=== PATIENT | female | born 1975 | race Caucasian/White ===

== ENCOUNTER 2023-06-15 15:52 | Outpatient (CLI) | payer OTHER, SELFPAY ==
--- NOTE | ~2023-06-15 | MM_ITS ---
EXAMINATION: MM screening [place] [facility] w [place] HISTORY: Screening mammogram TECHNIQUE: Craniocaudal and mediolateral oblique 3-D tomosynthesis images were obtained and synthetic 2-D images were generated. CAD analysis was submitted and interpreted. COMPARISON: 03/31/2017, 02/11/2016 bilateral screening mammogram examinations BREAST PARENCHYMAL COMPOSITION: The breasts are heterogeneously dense, which may obscure small masses . FINDINGS: There is no evidence of suspicious mass, calcification, or architectural distortion to sugg est malignancy in either breast. There has been no suspicious interval change. IMPRESSION: 1. No mammographic evidence of malignancy. 2. Recommend routine screening mammography in one year. BI-RADS Category 1: Negative Reviewed, dictated and finalized at location A.
== END 2023-06-15 15:53 | disposition home or self-care (01) ==
LOC: ANHIMG 15:57
PROVIDERS: PCP Physician Assistant; Visit Provider Physician Assistant
DX: Z12.31 Encounter for screening mammogram for malignant neoplasm of breast (principal)
CPT/HCPCS: 77063; 77067

== ENCOUNTER 2025-08-03 14:11 | Outpatient (CLI) | payer OTHER, SELFPAY ==
--- NOTE | ~2025-08-03 | MM_ITS ---
EXAMINATION: MM screening [place] [facility] w [facility] HISTORY: Screening TECHNIQUE: Craniocaudal and mediolateral oblique 3-D tomosynthesis images were obtained and synthetic 2-D images were generated. CAD analysis was submitted and interpreted. COMPARISON: Comparison to multiple prior studies sequentially, with oldest reviewed study dated 03/31/2017. BREAST PARENCHYMAL COMPOSITION: Dense: The breasts are extremely dense, which lowers the sensitivity of mammography. FINDINGS: There is no evidence of suspicious mass, calcification, or architectural distortion to suggest malignancy in either breast. There has been no suspicious interval change. IMPRESSION: 1. No mammographic evidence of malignancy. 2. Recommend routine screening mammography in one year. BI-RADS Category 1: Negative Reviewed, dictated and finalized at location [facility]
--- OUTSIDE RECORDS SUMMARY | 2025-08-03 14:37 | XMS_ITS | Encounter Summary ---
Author Organization [facility] Address [facility] [place] [address] Care Team Providers Care Refiner Operator Name Role Phone Kem Fernandez MD Primary Care Provider [phone] Encounter Details Date Type Department Care Team (Late st Contact Info) Description 02/19/[address] [facility] Medical Group Family & Internal Medicine [facility] [address] [place] [phone] [place] [address] [place] [address] Medication Social History Tobacco Use Types Packs/Day Years Used Date Smoking Tobacco: Former Cigarettes 1 15 0 1988 - 2003 Passive Smoke Exposure: Past Smokeless Tobacco: Never Alcohol Use Standard Drinks/Week Comments Yes 1.7 (1 standard drink = 0.6 oz p ure alcohol) occ AUDIT-C Answer Date Recorded Frequency of Alcohol Consumption Never 08/19/2019 Average Number of Drinks Not on file 019 Frequency of Binge Drinking Not on file 07/23 PHQ-2 Answer Date Recorded Patient Health Questionnaire-2 Score 0 11/17/2022 Comments No Sex and Gender Information Value Date Recorded Sex Assigned at Female 12/12/2024 11:31 AM CDT Legal Sex Female 6:42 PM CDT Gender Identity Female 12/12/2024 11:31 AM CDT Sexual Orientation Straight 12/12/2024 11 :31 AM CDT documented as of this encounter Plan of Treatment Upcoming Encounters Date Type Department Care Team (Late st Contact Info) Description 08/31/2025 10:40 AM BACKHOE OPERATOR Office Visit [facility] Medical [facility] Multispecialty Care - [place] [address] [address] [place] [address] Kem Fernandez MD [address] [place] [address] 12/13/2025 9:20 AM CDT Office Visit [facility] Medical [facility] Multispecialty [facility] - [address] [address] Kem Fernandez MD [address] [place] [address] documented as of this encounter Visit Diagnoses Not on filedocumented in this encounter Care Teams Refiner Operator Relationship Specialty Start Date End Date Kem Fernandez MD [address] [place] [phone] PCP - General INTERNAL MEDICINE 12/12/24 documented as of this encounter
--- OUTSIDE RECORDS SUMMARY | 2025-08-03 14:37 | XMS_ITS | Encounter Summary ---
Author Organization [facility] Address [facility] [place] [address] Care Team Providers Care Catering Associate Name Role Phone Kem Fernandez MD Primary Care Provider [phone] Encounter Details Date Type Department Care Team (Late st Contact Info) Description 11/17/2022 [employer] Message Enc [facility] Medical Group Family & Internal Medicine [facility] [id number] [place] [phone] [place] [address] [place] [address] Ear infection? Social History Tobacco Use Types Packs/Day Years [...] Orientation Straight 12/12/2024 11 :31 AM CDT COVID-19 Exposure Response Date Recorded In the last 10 days, have yo u been in contact with someone who was confirmed or suspected to have Coronavirus/COVID-19? No / Unsure 11/17/2022 10:53 AM LADIES ATTENDANT documented as of this encounter Functional Status * Over the past 2 weeks, how often have you been bothered by any of the following problems? Question Answer Date of Assessment Author Status Little interest or pleasure in doing things Not at all 11/17/2022 11:00 AM LADIES ATTENDANT Verna Hinton MA Active Feeling down, depressed, or hopeless Not at all 11/17/2022 11:00 AM Jessica Reyes MA Active Patient Health Questionnaire-2 Score 0 11/17/2022 11:00 AM LADIES ATTENDANT Zoraida Hinton MA Active documented as of this encounter Plan of Treatment Upcoming Encounters Date Type Department Care Team (Late st Contact Info) Description 08/31/2025 10:40 AM LADIES ATTENDANT Office [facility] [address] [address] Kem Fernandez MD [address] [place] [address] 12/13/2025 9:20 AM CDT [facility] [address] [address] Kem Fernandez MD [address] [place] [address] documented as of this encounter Visit Diagnoses Not on filedocumented in this encounter Care Teams Catering Associate Relationship Specialty Start Date End Date Kem Fernandez MD [address] [place] [address] PCP - General INTERNAL MEDICINE 12/12/24 documented as of this encounter
--- OUTSIDE RECORDS SUMMARY | 2025-08-03 14:37 | XMS_ITS | Encounter Summary ---
Author Organization [facility] Address [facility] [place] [address] Care Team Providers Care Air Traffic Instructor Name Role Phone Kem Fernandez MD Primary Care Provider [phone] Encounter Details Date Type Department Care Team (Late Contact Info) Description 07/31/2020 [employer]dai Message Enc [facility] Medical Group Family & Internal Medicine [facility] [address] [place] [address] Payton King APNP [address] [facility] [address] [place], [place] [id number] RE: Follow Up/Update Social History Tobacco Use Types Packs/Day Years Used Date Smoking Tobacco: Former Cigarettes 1 15 Smokeless Tobacco: Never Alcohol Use Standard Drinks/Week Comments Yes 0 (1 standard drink = 0.6 oz pur e alcohol) occ AUDIT-C Answer Date Recorded Frequency of Alcohol Consumption Never 08/19/2019 Average Number of Drinks Not on file 019 Frequency of Binge Drinking Not on file 07/23 PHQ-2 Answer Date Recorded PHQ-2 Score 0 11/24/2019 Comments No Sex and Gender Information Value Date Recorded Sex Assigned at Female 12/12/2024 11:31 AM CDT Legal Sex Female 6:42 PM CDT Gender Identity Female 12/12/2024 11:31 AM CDT Sexual Orientation Straight 12/12/2024 11 :31 AM CDT documented as of this encounter Plan of Treatment Upcoming Encounters Date Type Department Care Team (Late Contact Info) Description 08/31/2025 10:40 AM PIPELINE SYSTEMS OPERATOR Office Visit [facility] Medical Group Multispecialty Care [place] [address] [address] [place] [address] Kem Fernandez MD [facility] [address] 12/13/2025 9:20 AM CDT Office Visit [facility] Multispecialty Care - [place] [address] [address] [place] [address] Kem Fernandez MD [address] [place] [address] documented as of this encounter Visit Diagnoses Not on filedocumented in this encounter Care Teams Air Traffic Instructor Relationship Specialty Start Date End Date Kem Fernandez MD [address] [place] [address] PCP - General INTERNAL MEDICINE 12/12/24 documented as of this encounter
--- OUTSIDE RECORDS SUMMARY | 2025-08-03 14:37 | XMS_ITS | Encounter Summary ---
Author Organization [facility] Address [facility] [place] [address] Care Team Providers Care Director Weights And Measures Name Role Phone Kem Fernandez MD Primary Care Provider [phone] Encounter Details Date Type Department Care Team (Late st Contact Info) Description 07/15/2021 [employer] Message Enc [facility] Medical Group Family & Internal Medicine [address] [phone] [place] Provider RE:Appointment Social History Tobacco Use Types Packs/Day Years [...] 07/23 PHQ-2 Answer Date Recorded PHQ-2 Score - If the patient scores above 3, please move on to questions 3-9 0 12/10/2020 Comments No Sex and Gender Information Value Date Recorded Sex Assigned at Female 12/12/2024 11:31 AM CDT Legal Sex Female 6:42 PM CDT Gender Identity Female 12/12/2024 11:31 AM CDT Sexual Orientation Straight 12/12/2024 11 :31 AM CDT documented as of this encounter Plan of Treatment Upcoming Encounters Date Type Department Care Team (Late Contact Info) Description 08/31/2025 10:40 AM WATCH ENGINEER Office Visit [facility] Medical [facility] Multispecialty Care [address] [place] [id number] Kem Fernandez MD [address] [address] 12/13/2025 9:20 AM CDT Office Visit [facility] Medical Group Multispecialty Care [place] [address] [place] [address] [address] [place] [address] Kem Fernandez MD [id number] [address] [address] documented as of this encounter Visit Diagnoses Not on filedocumented in this encounter Care Teams Director Weights And Measures Relationship Specialty Start Date End Date Kem Fernandez MD [address] [place] [address] PCP - General INTERNAL MEDICINE 12/12/24 documented as of this encounter
--- OUTSIDE RECORDS SUMMARY | 2025-08-03 14:37 | XMS_ITS | Encounter Summary ---
Author Organization [facility] Address [facility] [place] [address] Care Team Providers Care Security Associate Name Role Phone Kem Fernandez MD Primary Care Provider [phone] Encounter Details Date Type Department Care Team (Late st Contact Info) Description 10/22/2023 Identiv Message Enc [facility] Medical Group Family & Internal Medicine [facility] [address] [place] [phone] [place] [address] [place] [address] Who do I see? Social History Tobacco Use Types Packs/Day Years [...] Date Recorded Patient Health Questionnaire-2 Score 0 06/30/2023 Comments No Sex and Gender Information Value Date Recorded Sex Assigned at Female 12/12/2024 11:31 AM CDT Legal Sex Female 6:42 PM CDT Gender Identity Female 12/12/2024 11:31 AM CDT Sexual Orientation Straight 12/12/2024 11 :31 AM CDT documented as of this encounter Plan of Treatment Upcoming Encounters Date Type Department Care Team (Late st Contact Info) Description 08/31/2025 10:40 AM FISHING ROD MECHANIC Office Visit [facility] Medical [facility] Multispecialty Care - [address] [place] [address] Kem Fernandez MD [address] [place] [address] 12/13/2025 9:20 AM CDT [facility] - [address] [address] Kem Fernandez MD [address] [place] [address] documented as of this encounter Visit Diagnoses Not on filedocumented in this encounter Care Teams Security Associate Relationship Specialty Start Date End Date Kem Fernandez MD [address] [place] [address] PCP - General INTERNAL MEDICINE 12/12/24 documented as of this encounter
--- OUTSIDE RECORDS SUMMARY | 2025-08-03 14:37 | XMS_ITS | Data Portability ---
Author Organization 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 Patient will come back in a year unless there are new symptoms. [email or web address] Not available 07/17/2025 11:04:13 Plan of Treatment Reminders Order Date Submit Date Provider Last Modified By Organization Details Last Modified Time Details Appointments None recorded. Lab pap, IG + HR HPV - HPV regardless but if HPV is positive need subtyping 16,18/45 2024 [facility] (Lab), [address], [place], [address], 12:53:40 Referral None recorded. Procedures None recorded. Surgeries None recorded. Imaging MAMMO, screening, digital, bilateral [address] [facility] (Radiology), [address] [facility] [address] [facility] , [place], [address], 04:03:58 Medication Orders None recorded. Patient TargetsNo targets recorded. Patient InstructionsNo instructions recorded. Reason for Referral None Reported. Results Created Date Observation Date Name Description Value Unit Range Abnormal Flag Note LastModifiedBy Organization Detail LastModifiedTime 07/17/2007/17/2025 IMAGE GUIDE D PAP AND HPV REGAR DLESS image guided Pap, HPV regardless of Pap result SEE RESULT S BELOW CASE REPOR T: Cytol ogy Gynec ologi isauro Repor t Case: [id number] Autho cherise jeaneth Provi dyan: Faye nj, Meredith , ANP, VALUER Colle cted: 07/17 1125 Order ing Locat ion: [place] [facility] Recei vivienne: 07/18 0219 First Scree n: Ana Joe, CT Speci men: Yovanny orellana Pap - Image d, Cervi x STATE MENT OF ADEQU ACY: Satis facto ry for evalu ation Trans forma tion zone compo nent prese nt ----- ----- ----- ----- ----- ----- ----- ----- ----- ----- ----- ----- ----- ----- ----- ----- ----- ---- FINAL DIAGN OSIS: Negat laurel for Intra epith elial Lesmabel johnson or Emery peterson (NIL) . Elect quinton brooke d by Ana Joe, CT on 07/21 at 1148 CDT ----- ----- ----- ----- ----- ----- ----- ----- ----- ----- ----- ----- ----- ----- ----- ----- ----- ---- HPV RESUL TS: HPV mRNA E6/E7 : No HPV mRNA Detec usman NOTE: This high risk HPV mRNA assay detec ts fourt een high- risk HPV types (16, 18, 31, 33, 35, 39, 45, 51, 52, 56, 58, 59, 66, 68) witho ut diffe renti ation . COMME NT: This speci men was revie wed by a Cytot echno logis t and/o r Patho logis t (as indic ated in this repor t) after evalu ation using the Thinp rep Imagi ng Syste m. CLINI ISAURO INFOR MATIO N: Menst rual Statu s: LMP (if appli cable ): 07/05 Clini isauro Histo ry/Pr eviou s Pap: Type of Neopl taylor (if appli cable ): Signi fican t Clini isauro Findi ngs: Other Histo ry: Hormo sonia (if appli cable ): PAP EDUCA JAMES L NOTE: The Pap Test is a scree esteban test with an inher ent false negat laurel rate. Liqui d-bas ed sampl ing may decre ase, but will not elimi ynes, false negat laurel resul ts. A negat laurel resul t does not precl ude the prese nce and/o r devel opmen t of disea se, since the prese nce of abnor mal cells in the sampl e depen ds on the locat ion of the lesio n and sampl ing techn ique. Robby nued regul ar scree esteban is the best metho d of cance r preve ntion . If repor usman cytol ogic findi ng do not corre late with physi isauro and/o r histo rical findi ngs, furth er inves tigat ion is recom kamran d, as clini lor hill nted. Not Available [facility] (Lab) [address], [place], [address], 07/21/2025 12:53:40 Result Notes None recorded. Problems Name Problem SNOMED Code Status Onset Date Resolution Date Notes Provider Name and Address Organization Details Recorded Time Atypical squamous cells of undetermi guerrero significa nce on cervical Papanicol aou smear 436444046 Active 2011 Papanicol aou smear of cervix with atypical squamous cells of undetermi guerrero significa nce (ASC-US); Recorded Elsewhere : No Locati on: [facility] So urce: EHR Chron ic: N Practic e ID: 0001 Bill able Time: 10:15:00 AM Not Available [facility] 0 16:29:51 Hirsutism 709734275 Active 2012 Hirsutism ;Recorded Elsewhere : No Locati on: [facility] So urce: EHR Chron ic: N Practic e ID: 0001 Bill able Time: 04:15:00 PM Not Available [facility] 0 16:29:54 Female infertili ty associate d with anovulati on 761258915 Active 2012 Infertili ty, female, associate d with anovulati on;Record ed Elsewhere : No Locati on: [facility] So urce: EHR Chron ic: N Practic e ID: 0001 Bill able Time: 04:15:00 PM Not Available [facility] 0 16:29:58 Primigrav shari 372182590 Active 2012 Supervisi on of normal first ;Recorded Elsewhere : No Locati on: [facility] So urce: EHR Chron ic: N Practic e ID: 0001 Bill able Time: 03:45:00 PM Not Available [facility] 0 16:29:50 Amenorrhe a 09987014 Active 2012 Absence of menstruat ion;Recor ded Elsewhere : No Locati on: [facility] So urce: EHR Chron ic: N Practic e ID: 0001 Bill able Time: 03:45:00 PM Not [facility] 0 16:29:52 Urinary tract infectiou s disease 98259897 Active 2012 Urinary Tract Infection ;Recorded Elsewhere : No Locati on: [facility] So urce: EHR Chron ic: N Practic e ID: 0001 Bill able Time: 08:30:00 AM Not Available [facility] 0 16:29:50 Multigrav shari of advanced maternal age 019610356 Active 2012 Other advanced maternal age, antepartu m condition or complicat ion;Recor ded Elsewhere : No Locati on: [facility] So urce: EHR Chron ic: N Practic e ID: 0001 Bill able Time: 09:00:00 AM Not Available [facility] 0 16:29:53 Benign essential hypertens ion complicat ing , childbirt h and the puerperiu m - not delivered 176223010 Active 2013 Hypertens ion During ;Practice ID: 0001 Not Available [facility] 0 16:30:06 Delivery normal 39633560 Active 2013 Normal delivery; Practice ID: 0001 Not Available [facility] 0 16:30:09 Benign essential hypertens ion 4491101 Active 2013 Hypertens ion, Benign;Re corded Elsewhere : No Locati on: [facility] So urce: EHR Chron ic: Y Practic e ID: 0001 Bill able Time: 10:45:00 AM Not Available [facility] 0 16:29:55 Postpartu m care Active 2013 Post Followup; Recorded Elsewhere : No Locati on: [facility] So urce: EHR Chron ic: N Practic e ID: 0001 Bill able Time: 09:30:00 AM Not Available [facility] 0 16:29:58 Infection of the breast AND/OR nipple associate d with childbirt h 59256241 Active 2013 Unspecifi ed postpartu m infection of the breast and nipple;Pr actice ID: 0001 Not Available [facility] 0 16:30:09 Alopecia 73793130 Active 2013 Hair loss disorder; Recorded Elsewhere : No Locati on: [facility] So urce: EHR Chron ic: N Practic e ID: 0001 Bill able Time: 08:45:00 AM Not Available [facility] 0 16:29:59 Specializ ed medical examinati on Active 2014 Gynecolog ical Examinati on;Record ed Elsewhere : No Locati on: [facility] So urce: EHR Chron ic: N Practic e ID: 0001 Bill able Time: 08:30:00 AM Not Available [facility] 0 16:29:51 Adult health examinati on Active 2014 ROUTINE MEDICAL EXAM;Job rded Elsewhere : No Locati on: [facility] So urce: EHR Chron ic: N Practic e ID: 0001 Bill able Time: 08:30:00 AM Not Available [facility] 0 16:29:52 Screening for malignant neoplasm of cervix Active 2014 Pap Smear;Pra ctice ID: 0001 Not Available [facility] 0 16:30:10 Finding of fertility Active 2015 Female infertili ty, unspecifi ed;Record ed Elsewhere : No Locati on: [facility] So urce: EHR Chron ic: N Practic e ID: 0001 Bill able Time: 08:30:00 AM Not Available [facility] 0 16:29:[address] Concept Active 2015 Encntr for general adult medical exam w/o abnormal findings; Recorded Elsewhere : No Locati on: [facility] So urce: EHR Chron ic: N Practic e ID: 0001 Bill able Time: 08:30:00 AM Not Available [facility] 0 16:29:53 Body mass index 25-29 - overweigh t 205916522 Active 2015 Body mass index (BMI) 25.0-25.9 , adult;Rec orded Elsewhere : No Locati on: [facility] So urce: EHR Chron ic: N Practic e ID: 0001 Bill able Time: 08:30:00 AM Not Available [facility] 0 16:29:55 Threatene d miscarria ge 05745934 Active 2015 Threatene d ; Recorded Elsewhere : No Locati on: [facility] So urce: EHR Chron ic: N Practic e ID: 0001 Bill able Time: 02:15:00 PM Not Available [facility] 0 16:29:51 Gestation less than 9 weeks 749598182 Active 2015 Less than 8 weeks gestation of ;Practice ID: 0001 Not Available [facility] 0 16:30:11 Evaluatio n finding Active 2016 Hematuria , unspecifi ed;Record ed Elsewhere : No Locati on: [facility] So urce: EHR Chron ic: N Practic e ID: 0001 Bill able Time: 11:45:00 AM Not Available [facility] 0 16:29:[address] Concept Active 2016 Encntr for is technician exam (general) (routine) w/o abn findings; Recorded Elsewhere : No Locati on: [facility] So urce: EHR Chron ic: N Practic e ID: 0001 Bill able Time: 10:00:00 AM Not Available [facility] 0 16:29:50 Hypertens laurel disorder 73492693 Active 2016 Essential (primary) hypertens ion;Recor ded Elsewhere : No Locati on: [facility] So urce: EHR Chron ic: N Practic e ID: 0001 Bill able Time: 10:00:00 AM Not Available [facility] 0 16:29:50 detection examinati on Active 2016 Encounter for test, result positive; Recorded Elsewhere : No Locati on: [facility] So urce: EHR Chron ic: N Practic e ID: 0001 Bill able Time: 10:00:00 AM Not Available [facility] 0 16:29:55 Gestation period, 12 weeks 19070466 Active 2017 12 weeks gestation of ;Recorded Elsewhere : No Locati on: [facility] So urce: EHR Chron ic: N Practic e ID: 0001 Bill able Time: 10:00:00 AM Not Available [facility] 0 16:29:51 Rubella screening status 881429867 Active 2017 Encounter for screening , unspecifi ed;Record ed Elsewhere : No Locati on: [facility] So urce: EHR Chron ic: N Practic e ID: 0001 Bill able Time: 10:45:00 AM Not Available [facility] 0 16:29:53 care: multiparo us, older than 35 years 336279380 Active 2017 Supervisi on of elderly multigrav shari, first trimester ;Recorded Elsewhere : No Locati on: [facility] So urce: EHR Chron ic: N Practic e ID: 0001 Bill able Time: 10:00:00 AM Not Available [facility] 0 16:29:54 screening Active 2017 Encounter for screening for nuchal transluce ncy;Recor ded Elsewhere : No Locati on: [facility] So urce: EHR Chron ic: N Practic e ID: 0001 Bill able Time: 10:00:00 AM Not Available [facility] 0 16:29:56 screening for malformat ion Active 2017 Encounter for screening for malformat ions;Prac myra ID: 0001 Not Available [facility] 0 16:30:05 Spotting per vagina in 154948451 Active 2017 Spotting complicat ing , second trimester ;Recorded Elsewhere : No Locati on: [facility] So urce: EHR Chron ic: N Practic e ID: 0001 Bill able Time: 01:45:00 PM Not Available [facility] 0 16:29:54 Gestation period, 27 weeks 48923374 Active 2017 27 weeks gestation of ;Recorded Elsewhere : No Locati on: [facility] So urce: EHR Chron ic: N Practic e ID: 0001 Bill able Time: 01:45:00 PM Not Available [facility] 0 16:29:55 Finding of contents of cervix 049237849 Active 2017 Weeks of gestation of not specified ;Practice ID: 0001 Not Available [facility] 0 16:30:12 False labor before 37 completed weeks of gestation 22017528129 594624 Active 2017 False labor before 37 completed weeks of gest, third tri;Pract ice ID: 0001 Not Available [facility] 0 16:30:12 Gestation period, 31 weeks 02878114 Active 2017 31 weeks gestation of ;Practice ID: 0001 Not Available [facility] 0 16:30:12 Gestation period, 32 weeks 9523857 Active 2017 32 weeks gestation of ;Recorded Elsewhere : No Locati on: [facility] So urce: EHR Chron ic: N Practic e ID: 0001 Bill able Time: 05:00:00 PM Not Available [facility] 0 16:29:50 Hypertens ion in the obstetric context Active 2017 Pre-exist ing essential htn comp , third trimester ;Recorded Elsewhere : No Locati on: [facility] So urce: EHR Chron ic: N Practic e ID: 0001 Bill able Time: 05:00:00 PM Not Available [facility] 0 16:29:[address] Concept Active 2017 Matern care for abnlt fetl hrt rate or rhym, 3rd tri, unsp;Job rded Elsewhere : No Locati on: [facility] So urce: EHR Chron ic: N Practic e ID: 0001 Bill able Time: 05:45:00 PM Not Available [facility] 0 16:29:52 Gestation period, 33 weeks 72560333 Active 2017 33 weeks gestation of ;Recorded Elsewhere : No Locati on: [facility] So urce: EHR Chron ic: N Practic e ID: 0001 Bill able Time: 05:45:00 PM Not Available [facility] 0 16:29:55 Gestation period, 34 weeks 73008173 Active 2017 34 weeks gestation of ;Recorded Elsewhere : No Locati on: [facility] So urce: EHR Chron ic: N Practic e ID: 0001 Bill able Time: 05:00:00 PM Not Available [facility] 0 16:29:53 Gestation period, 35 weeks 27085370 Active 2017 35 weeks gestation of ;Recorded Elsewhere : No Locati on: [facility] So urce: EHR Chron ic: N Practic e ID: 0001 Bill able Time: 05:30:00 PM Not Available [facility] 0 16:29:51 Normal in multigrav mills 94588485138 4106 Active 2017 Encounter for suprvsn of normal , third trimester ;Recorded Elsewhere : No Locati on: [facility] So urce: EHR Chron ic: N Practic e ID: 0001 Bill able Time: 04:30:00 PM Not Available [facility] 0 16:29:50 Gestation period, 36 weeks 35435395 Active 2017 36 weeks gestation of ;Recorded Elsewhere : No Locati on: [facility] So urce: EHR Chron ic: N Practic e ID: 0001 Bill able Time: 04:00:00 PM Not Available [facility] 0 16:29:56 Gestation period, 37 weeks 05870649 Active 2017 37 weeks gestation of ;Recorded Elsewhere : No Locati on: [facility] So urce: EHR Chron ic: N Practic e ID: 0001 Bill able Time: 05:00:00 PM Not Available [facility] 0 16:29:52 Gestation period, 38 weeks 20422486 Active 2017 38 weeks gestation of ;Recorded Elsewhere : No Locati on: [facility] So urce: EHR Chron ic: N Practic e ID: 0001 Bill able Time: 05:00:00 PM Not Available [facility] 0 16:29:53 Laceratio n of female perineum Active 2017 Second degree perineal laceratio n during delivery; Practice ID: 0001 Not Available [facility] 0 16:30:02 Single live from weaver 491652755 Active 2017 Single live ;Pra ctice ID: 0001 Not Available [facility] 0 16:30:02 Non-prote inuric hypertens ion of 958954632 Active 2017 Gestation al hypertens ion w/o significa nt proteinur ia, complicat ing the postpartu m period;Re corded Elsewhere : No Locati on: [facility] So urce: EHR Chron ic: N Practic e ID: 0001 Bill able Time: 11:45:00 AM Not Available [facility] 0 16:29:55 Lochia finding Active 2017 Encounter for routine postpartu m follow-up ;Recorded Elsewhere : No Locati on: [facility] So urce: EHR Chron ic: N Practic e ID: 0001 Bill able Time: 05:00:00 PM Not Available [facility] 0 16:29:58 Screening for malignant neoplasm of rectum Active 2017 Encounter for screening for malignant neoplasm of rectum;Pr actice ID: 0001 Not Available [facility] 0 16:29:50 Insertion of intrauter ine contracep tive device Active 2017 Encounter for insertion of intrauter ine contracep tive device;Pr actice ID: 0001 Not Available [facility] 0 16:29:50 Clinical finding Active 2017 Presence of (intraute rine) contracep tive device;Re corded Elsewhere : No Locati on: [facility] So urce: EHR Chron ic: N Practic e ID: 0001 Bill able Time: 09:45:00 AM Not Available [facility] 0 16:30:25 Removal of intrauter ine device Active 2018 Encounter for removal of intrauter ine contracep tive device;Pr actice ID: 0001 Not Available [facility] 0 16:29:50 test negative 055138592 Active 2018 Encounter for test, result negative; Practice ID: 0001 Not Available [facility] 0 16:29:50 Contracep tive sheath status 179357122 Active 2018 Encounter for routine checking of intrauter ine contracep dev;Pract ice ID: 0001 Not Available [facility] 0 16:29:50 Pelvic and perineal pain 988332157 Active 2018 Pelvic and perineal pain;Prac myra ID: 0001 Not Available [facility] 0 16:29:50 Problem Notes None recorded. Medical Equipment None Reported. Allergies Allergen ID Allergen Name Allergen Category Reaction Reaction Severity Criticality Documentation Date Start Date Code Code System Note Provider Name and Address Organization Details Recorded Time 97161 Product containin g penicilli n (product) medicatio n Not available Not available Not available 09/07/2020 88357 8001 SNOMED Comme nt: [facility]; Not Available [facility] 0 14:24:38 Medications Name Sig Start Date Stop Date Status Note LastModified by Organization Details LastModified Time losartan 50 mg tablet active Not Available Not Available Not Available Mirena 21 mcg/24 hr (up to 8 years) 52 mg intrauter ine device 01/12 completed Prescrib ed Elsewher e: Yes Loca tion: Mayi ayala [facility] odify By: ronen turcios DateTime : 12/09/19 19 11:15:00 AM Not Available Not Available Not Available clomiphen e citrate 50 mg tablet take 1 Tablet by oral route every day for 5 days days 5-9 of cycle 02/07 completed Prescrib ed Elsewher e: No Locat ion: Mayi ayala [facility] odify By: stacy turcios DateTime : 02/04/20 17 09:23:22 AM Not Available Not Available Not Available metoprolo l succinate ER 100 mg tablet,ex tended release 24 hr take 1 tablet by oral route every day 07/17 completed Prescrib ed Elsewher e: Yes Loca tion: Mayi ayala [facility] odify By: amelijah Ayala ncounter DateTime : 01/13/20 19 01:00:00 PM Not Available Not Available Not Available sertralin e 100 mg tablet TAKE ONE HALF TABLET FOR 2 WEEKS AND THEN ONE TABLET BY MOUTH DAILY active Not Available Not Available No t Available methyldop a 250 mg tablet take 1 tablet by oral route 2 times every day 01/12 completed Prescrib ed Elsewher e: No Locat ion: Mayi ayala [facility] odify By: amelijah Ayala ncounter DateTime : 02/19/20 18 04:30:00 PM Not Available Not Available Not Available valacyclo vir 500 mg tablet active Not Available Not Available No t Available Macrobid 100 mg capsule take 1 capsule (100MG) by oral route every 12 hours with food 12/30 completed Prescrib ed Elsewher e: No Locat ion: Mayi ayala [facility] odify By: constanza Ayala ncounter DateTime : 07/01/20 13 02:38:14 PM Not Available Not Available Not Available alprazola m 0.25 mg tablet active Not Available Not Available Not Available Diflucan 100 mg tablet take 1 tablet by oral route every day 05/11 completed Prescrib ed Elsewher e: No Locat ion: Mayi ayala [facility] odify By: mera Samuel r DateTime : 01/21/20 14 09:30:00 AM Not Available Not Available Not Available Femara 2.5 mg tablet take 1 tablet by oral route every day days 5-9 06/30 completed Prescrib ed Elsewher e: No Locat ion: Mayi ayala [facility] odify By: uriel Ayala ncounter DateTime : 03/09/20 17 08:30:00 AM Not Available Not Available Not Available cephalexi n 500 mg tablet take 1 tablet by oral route every 6 hours 05/11 completed Prescrib ed Elsewher e: No Locat ion: Mayi ayala [facility] odify By: mera Samuel r DateTime : 01/21/20 14 09:30:00 AM Not Available Not Available Not Available mupirocin 2 % topical ointment apply by topical route 3 times every day a small amount to the affected area for 10 days 07/12 completed Prescrib ed Elsewher e: No Locat ion: Mayi ayala [facility] odify By: keanu cummingsunter DateTime : 11/13/19 18 08:37:10 AM Not Available Not Available Not Available Vitamin D2 1,250 mcg (50,000 unit) capsule take 1 capsule (71047BT ITS) by oral route every week 12/30 completed Prescrib ed Elsewher e: No Locat ion: Mayi ayala [facility] odify By: constanza cummingsuntdar DateTime : 07/01/20 13 02:38:14 PM Not Available Not Available Not Available sertralin e 50 mg tablet 07/17 completed Not Available Not Available Not Available ParaGard T 380A 380 square mm intrauter ine device 2018 active Prescrib ed Elsewher e: Yes Loca tion: Mayi ayala [facility] odify By: ronen cummingsunter DateTime : 01/13/20 19 01:00:00 PM Not Available Not Available Not Available Flexeril 10 mg tablet take 1 tablet (10MG) by oral route 2 times every day 01/20 completed Prescrib ed Elsewher e: No Locat ion: Mayi ayala [facility] odify By: constanza cummingsuntdar DateTime : 11/23/19 14 10:30:00 AM Not Available Not Available Not Available iron 18 mg tablet active Prescrib ed Elsewher e: Yes Loca tion: Mayi ayala [facility] odify By: keanu cummingsunter DateTime : 12/09/19 19 11:15:00 AM Not Available Not Available Not Available Quasense 0.15 mg-30 mcg (91) tablets,3 month dose pack take 1 tablet by oral route every day 11/08 completed Prescrib ed Elsewher e: No Locat ion: Mayi ayala [facility] odify By: jjkline Encounte r DateTime : 11/17/19 12 01:00:00 PM Not Available Not Available Not Available hydrochlo rothiazid e 12.5 mg tablet take 1 tablet by oral route every day 05/18 completed Prescrib ed Elsewher e: Yes Loca tion: Mayi ayala [facility] odify By: pillo Redd unter DateTime : 11/08/19 13 04:15:00 PM Not Available Not Available Not Available magnesium 100 mg (as glycinate ) tablet active Not Available Not Available Not Available Yuri-C DHA 35 mg-1 mg-200 mg capsule take 1 capsule by oral route every day 09/29 completed Prescrib ed Elsewher e: Yes Loca tion: Mayi ayala [facility] odify By: andre gutierrez DateTime : 09/29/19 18 10:45:00 AM Not Available Not Available Not Available Probiotic 10 billion cell capsule 07/17 completed Prescrib ed Elsewher e: Yes Loca tion: Mayi ayala [facility] odify By: ronen cummingsunter DateTime : 09/29/19 18 10:45:00 AM Not Available Not Available Not Available Triveen-D uo DHA 29 mg-1 mg-400 mg oral pack take 1 by Oral route every day 07/12 completed Prescrib ed Elsewher e: No Locat ion: Mayi ayala [facility] odify By: keanu Ayala ncounter DateTime : 09/30/19 18 11:30:31 AM Not Available Not Available Not Available fenugreek seed extract 500 mg capsule use as directed 03/20 completed Prescrib ed Elsewher e: No Locat ion: Mayi ayala [facility] odify By: cmedical Encount er DateTime : 12/31/19 14 10:45:00 AM Not Available Not Available Not Available Multi Vitamin 9 mg iron/15 mL oral liquid active Prescrib ed Elsewher e: Yes Loca tion: Mayi ayala [facility] odify By: keanu Ayala ncounter DateTime : 12/09/19 19 11:15:00 AM Not Available Not Available Not Available 19 29 mg iron-1 mg chewable tablet chew 1 tablet by oral route every day 12/08 completed Prescrib ed Elsewher e: Yes Loca tion: [facility] Nory oliver By: keanu turcios DateTime : 07/12/20 10:30:00 AM Not Available Not Available Not Available Hair, Skin, Nails with Biotin 07/17 completed Not Available Not Available Not Available Xhance 93 mcg/actua tion breath activated aerosol 2 SPRAYS IN EACH NOSTRIL NASALLY ONCE A DAY 30 DAYS 07/17 completed Not Available Not Available Not Available Vitals Date Recorded Body height Body mass index (BMI) Body weight Systolic And Diastolic Provider Name and Address Organization Details Last Updated DateTime 07/17/2025 170.18 cm 24.5 kg/m2 95934.85 g 133/79 mm[Hg] Anita Baugh [facility] 07/17/2025 11:11:28 Social History Question Answer Notes LastModified by Organizat ion Details LastModified Time Do You Have An Advance Directive? No [email or web address] Information n ot available 07/17/2025 Are You Blind Or Do You Have Difficulty Seeing? No [email or web address] Information n ot available 07/17/2025 What Is Your Level Of Caffeine Consumption? Occasional Information not available 07/17/2025 How Much Tobacco Do You Chew? None [email or web address] Information not available 07/17/2025 In The 14 Days Before Symptom Onset, Have You Had Close Contact With A Laboratory-confirm ed COVID-19 While That Case Was Ill? No [email or web address] Information n ot available 07/17/2025 In The 14 Days Before Symptom Onset, Have You Had Close Contact With A Person Who Is Under Investigation For COVID-19 While That Person Was Ill? No [email or web address] Information not available 07/17/2025 Have You Been To An Area Known To Be High Risk For COVID-19? No [email or web address] Information not available 07/17/2025 Are You Deaf Or Do You Have Serious Difficulty Hearing? No [email or web address] Information not available 07/17/2025 What Type Of Diet Are You Following? REGULAR [email or web address] Information n ot available 07/17/2025 What Is The Highest Grade Or Level Of School You Have Completed Or The Highest Degree You Have Received? [id number] Information not available 07/17/2025 Are There Any Guns Present In Your Home? No Information not available 07/17/2025 Do You Use Protection During Sex? No [email or web address] Information not available 07/17/2025 Do You Use Your Seat Belt Or Car Seat Routinely? Yes Information not available 07/17/2025 Are You Sexually Active? Yes [email or web address] Information not available 07/17/2025 Do You Have Smoke And Carbon Monoxide Detectors In Your Home? Yes [email or web address] Information not available 07/17/2025 How Much Tobacco Do You Smoke? No Information not available 07/17/2025 Do You Use Sunscreen Routinely? Yes [email or web address] Information not available 07/17/2025 Have You Used IV Drugs? No [email or web address] Information not available 07/17/2025 Do You Have Difficulty Walking Or Climbing Stairs? No [email or web address] Information not available 07/17/2025 Sex: Unknown Functional Status Question Answer Note LastModified by Organizat ion Details LastModified Time Do you use any illicit or recreational drugs? No [email or web address] Information not available 07/17/2025 What is your level of alcohol consumption? Occasional Information not available 07/17/2025 Are you currently employed? No [email or web address] Information not available 07/17/2025 Are you able to walk independently without assistance or assistive devices? YESWOREST [email or web address] Information not available 07/17/2025 Are you able to care for yourself independently? 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 No [email or web address] Information not available 07/17/2025 What is your exercise level? Moderate Information not available 07/17/2025 Mental Status Question Answer Note LastModified by Organization D etails LastModified Time Do you feel stressed (tense, restless, nervous, or anxious, or unable to sleep at night)? [id number] [email or web address] Information not available 07/17/2025 Family History Relationship Description Onset Age of this Age Resolved Age Notes LastModified by Organization Details LastModified Time Father Hypertensive disorder [email or web address] Not available 2024 11:05:19 Father Diabetes mellitus DAD'S side Not available 07/17/2025 11:16:17 Mother Malignant neoplasm of skin [email or web address] Not available 2024 11:15:56 Maternal Grandmother Malignant neoplasm of breast [email or web address] Not available 2024 11:16:02 Unspecified Relation Diabetes mellitus Not available 2024 11:16:17 Paternal Grandfather Hypertensive disorder [email or web address] Not available 2024 11:16:22 Paternal Grandfather Malignant neoplasm of colon [email or web address] Not available 2024 11:16:36 Medical History Condition Response Heart Problems Y Hypertension Y Gynecological History Statement/Question Response Date of Last Mammogram Flow Moderate Date of LMP 07/05/2025 N Was last menstrual period normal Y STIs/STDs N Date of Last Colonoscopy IUD Desired Control Method IUD On BCP's at Conception? N HPV Vaccine N Duration of Flow (days) 6 Current Control Method IUD Age at First Child 38 Are cycles usually normal Y Frequency of Cycle (Q days) 30 Sexually Active? Y Menses Monthly Y Date of DEXA bone scan Age of first menstrual cycle 9 Date of Last Pap Smear Sexual Problems? N LMP Definite N Obstetrics History GPAL:G 4 P 2 0 2 2 Type Value Full Term 2 Spontaneous 2 Living 2 Total 4 Past Encounters Encounter ID Performer Location Encounter Start Date Encounter Closed Date Diagnosis/Indication Diagnosis SNOMED-CT Code Diagnosis ICD10 Code Diagnosis IMO Codes Diagnosis Note [id number] MEREDITH NEAL NP Many [address] [address] 07/17/2025 11:03:09 07/17/2025 11:37:49 [facility] examination [id number] Z01.419 [id number] Annual gynecologi isauro exam performed. Patient will come back in a year unless there are new symptoms. Suggest Calcium with Vitamin D if not eating in diet. Patient advised to get annual flu shot. Recommend yearly physicals and perform monthly breast exams. Genetic testing is available for patients with family history of cancer. Engage in safe sexual practices, use condoms. Encouraged to have daily exercise. Avoid tobacco and illicit drugs, moderation of alcohol. If BMI greater than 25 dietary consult advised. If you have any questions please call or email. mammogram- ordered; pt to schedule colon cancer screening - PCP; has cologuard ordered DEXA scan- n/a Pap smear- pap w/ HPV collected laboratory evaluation - PCP STI testing - declined A Paragard IUD prevents for up to 10 years. Expires 01/12/2029. Screening mammography [id number] Z12.31 [id number] Health Concerns Section Related Observation LastModified by Organization Detai ls LastModified Time None Recorded Concern Status LastModified by Organization Details LastModified Time None Recorded Advance Directives Directive N: Payers Insurance Date Sequence Insurance Name Policy Number Policy Harrison Covered Member ID Harrison Member ID Guarantor Name 07/14/2025 1 [facility] [id number] Christian Jacobo [id number] Jolene Jacobo Notes Date Note Type Note Provider Name and Address Organization Details Recorded Time 07/17/20 25 text/htm l Annual GYNReported by PatientGenitourinary symptomsFor menstrual cycle, patient reportsnormal menses. For urinary symptoms, patient reportsno hematuriaandno incontinence. For vulva, patient reportsno genital lesion. For vagina, patient reportsnormal vaginal discharge.Breast symptomsFor breast, patient reportsno breast pain,no breast lump, andno nipple discharge.ContraceptionFor current contraception, patient reportssatisfied with current contraceptionandintrauterine device (iud).Endocrine symptomsFor sexual complaints, patient reportsno sexual complaints,no pain during intercourse, andnormal libido. For menopausal symptoms, patient reportsno menopausal symptomsandnormal vaginal lubrication.Psychological symptomsFor psychological symptoms, patient reportsno depression,no anxiety, andno pmdd.Preventative measuresFor preventive measures, patient reportsencourage self breast examination,encourage regular exercise,encourage no tobacco use, andencourage regular mammograms starting age 40. New patient presents to establish care. Anita Baugh [facility] 07/17/2025 11:41:58 OBGyn Episode Ob Episode Information Episode Created Date Number of Fetuses Patient Bloodtype Patient rh Status Prepregnancy Weight lbs Domestic Partner Domestic Partner Phone Father Name Humanities Department Chair Status 07/17/20 1 CLOSED Fetus Data First Name Last Name Admitted to NICU Weight (g) Sex Living Outcome Pediatric Complications Fetus ID Race Codes Race Delivery Type , Spontane ous [id number] Usman Calculation Initial Usman Date Initial Exam Date Initial Exam Provider Initial Ultrasound Date Last Menstrual Period Date Ultra Sound Weeks Gestation 0 Eighteen To Twenty Week Usman Update Ultra Sound Date Fundal Height At Umbil Quickening Date Ultra Sound Latest Weeks Gestation Final Usman Confirmed By Final Usman Confirmed Date Final Usman Date Ultra Sound Latest Days Gestation 0 0 Menstrual History Last Menstrual Date Menses Monthly On Bcp Conception Prior Menses Frequency Hcg Plus Date Menarche Onset Age Delivery Information Delivery Date Delivery Type Labor Anesthesia Weeks Gestation Incision Type Labor Labor Length Hrs Delivered By Post Complications Tubal Sterilization Discharge Date Comments 3 Discharge Information Feeding Method Contraceptive Method Maternal HG B and HCT Levels Ob Episode Information Episode Created Date Number of Fetuses Patient Bloodtype Patient rh Status Prepregnancy Weight lbs Domestic Partner Domestic Partner Phone Father Name Humanities Department Chair Status 07/17/20 1 CLOSED Fetus Data First Name Last Name Admitted to NICU Weight (g) Sex Living Outcome Pediatric Complications Fetus ID Race Codes Race Delivery Type 3175.14 4 F Full Term [id number] Vaginal Delivery Usman Calculation Initial Usman Date Initial Exam Date Initial Exam Provider Initial Ultrasound Date Last Menstrual Period Date Ultra Sound Weeks Gestation 0 Eighteen To Twenty Week Usman Update Ultra Sound Date Fundal Height At Umbil Quickening Date Ultra Sound Latest Weeks Gestation Final Usman Confirmed By Final Suman Confirmed Date Final Usman Date Ultra Sound Latest Days Gestation 0 0 Menstrual History Last Menstrual Date Menses Monthly On Bcp Conception Prior Menses Frequency Hcg Plus Date Menarche Onset Age Delivery Information Delivery Date Delivery Type Labor Anesthesia Weeks Gestation Incision Type Labor Labor Length Hrs Delivered By Post Complications Tubal Sterilization Discharge Date Comments 4 38 Discharge Information Feeding Method Contraceptive Method Maternal HG B and HCT Levels Ob Episode Information Episode Created Date Number of Fetuses Patient Bloodtype Patient rh Status Prepregnancy Weight lbs Domestic Partner Domestic Partner Phone Father Name Humanities Department Chair Status 07/17/20 1 CLOSED Fetus Data First Name Last Name Admitted to NICU Weight (g) Sex Living Outcome Pediatric Complications Fetus ID Race Codes Race Delivery Type 3175.14 4 F Full Term [id number] Vaginal Delivery Usman Calculation Initial Usman Date Initial Exam Date Initial Exam Provider Initial Ultrasound Date Last Menstrual Period Date Ultra Sound Weeks Gestation 0 Eighteen To Twenty Week Usman Update Ultra Sound Date Fundal Height At Umbil Quickening Date Ultra Sound Latest Weeks Gestation Final Usman Confirmed By Final Usman Confirmed Date Final Usman Date Ultra Sound Latest Days Gestation 0 0 Menstrual History Last Menstrual Date Menses Monthly On Bcp Conception Prior Menses Frequency Hcg Plus Date Menarche Onset Age Delivery Information Delivery Date Delivery Type Labor Anesthesia Weeks Gestation Incision Type Labor Labor Length Hrs Delivered By Post Complications Tubal Sterilization Discharge Date Comments 8 38 Discharge Information Feeding Method Contraceptive Method Maternal HG B and HCT Levels Ob Episode Information Episode Created Date Number of Fetuses Patient Bloodtype Patient rh Status Prepregnancy Weight lbs Domestic Partner Domestic Partner Phone Father Name Humanities Department Chair Status 07/17/20 25 1 CLOSED Fetus Data First Name Last Name Admitted to NICU Weight (g) Sex Living Outcome Pediatric Complications Fetus ID Race Codes Race Delivery Type , Spontane ous [id number] Usman Calculation Initial Usman Date Initial Exam Date Initial Exam Provider Initial Ultrasound Date Last Menstrual Period Date Ultra Sound Weeks Gestation 0 Eighteen To Twenty Week Usman Update Ultra Sound Date Fundal Height At Umbil Quickening Date Ultra Sound Latest Weeks Gestation Final Usman Confirmed By Final Usman Confirmed Date Final Usman Date Ultra Sound Latest Days Gestation 0 0 Menstrual History Last Menstrual Date Menses Monthly On Bcp Conception Prior Menses Frequency Hcg Plus Date Menarche Onset Age Delivery Information Delivery Date Delivery Type Labor Anesthesia Weeks Gestation Incision Type Labor Labor Length Hrs Delivered By Post Complications Tubal Sterilization Discharge Date Comments 3 Discharge Information Feeding Method Contraceptive Method Maternal HG B and HCT Levels
--- OUTSIDE RECORDS SUMMARY | 2025-08-03 14:37 | XMS_ITS | Clinical Summary ---
Author Organization [facility] Address [address] [place] [address] Care Team Providers Care Financial Investment Manager Name Role Phone Baron Vang MD Primary Care Provider [phone] Allergies Active Allergy Reactions Criticality Noted Date Comments Nickel Rash Medium 02/22/2020 Medications ALPRAZolam (XANAX) 0.25 mg tablet as needed 0 Active lisinopriL (PRINIVIL,ZESTRIL) 20 mg tablet TAKE 1 TABLET(20 MG) BY MOUTH DAILY 0 Active sertraline (ZOLOFT) 50 mg tablet TAKE 1 TABLET(50 MG) BY MOUTH DAILY 0 Active valACYclovir (VALTREX) 500 mg tablet Take 1,000 mg by mouth 2 (two) times a day 0 Active Lacto.acidophilus- Bif.animalis 32 billion cell capsule Take 1 capsule by mouth 3 times daily Active gabapentin (NEURONTIN) 600 mg tabletIndications: Intervertebral disc disorder with radiculopathy of lumbar region,Neuralgia Take 1.5 tablets (900 mg total) by mouth 2 (two) times a day 270 tablet 3 1 Active Active Problems Problem Noted Date Diagnosed Date Lumbar radiculopathy 03/27/2020 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 (Added by TW Conv) Hypertension Other 2 Reported Previo us High Blood Pressure - father. (Added by TW Conv) Thyroid disease Other 3 Thyroid Diso rder - mother. (Added by TW Conv) Diabetes Other 4 Diabetes Mellit us - aunt. (Added by TW Conv) Obesity Other 5 Obesity - mothe r,father,sister,aunt. (Added by TW Conv) Breast cancer Other 6 Breast Cancer - grandma,aunt. (Added by TW Conv) Relation Name Status Comments Father Mother Other 1 Other 2 Other 3 Other 4 Other 5 Other 6 Social History Tobacco Use Types Packs/Day Years Used Date Smoking Tobacco: Former Smokeless Tobacco: Never Alcohol Use Standard Drinks/Week Comments Yes 0 (1 standard drink = 0.6 oz pur e alcohol) SOCIAL 2-3 /week Comments No Sex and Gender Information Value Date Recorded Sex Assigned at Not on file Legal Sex Female 2:52 PM CDT Gender Identity Not on file Sexual Orientation Not on file Last Filed Vital Signs Vital Sign Reading Time Taken Comments Blood Pressure 117/74 09/18/2020 1:54 PM BANANA GRADER Pulse 67 09/18/2020 1:54 PM BANANA GRADER Temperature 36.6 C (97.8 F) 09/18/2020 12:38 PM BANANA GRADER Respiratory Rate 18 09/18/2020 1:54 PM BANANA GRADER Oxygen Saturation 96% 09/18/2020 1:54 PM BANANA GRADER Inhaled Oxygen Concentration - - Weight 72.6 kg (160 lb) 09/18/2020 12:38 PM BANANA GRADER Height 170.2 cm (5' 7) 09/18/2020 12:38 PM BANANA GRADER Body Mass Index 25.06 09/18/2020 12:38 PM BANANA GRADER Plan of Treatment Not on file Goals Goal Patient Goal Type Associated Problems Recent Progress Patient-Stated? Author CCM Chronic Pain Care Plan Chronic Care Management Improving( 12:41 PM BANANA GRADER) No Kathie Hadley, RN Note: Problem: Chronic Pain Goals: 1. Minimize further functional decline 2. Maximize quality of life 3. Control pain Strategies: - Activity/exercise program recommendation - Conservative stepwise pain medicine strategy with multi-disciplinary approach - Recommend healthy lifestyle strategies and compensatory methods as needed Insurance [employer] ACCESS CHOICE [email or web address] ACCESS CHOICE Care Teams Financial Investment Manager Relationship Specialty Start Date End Date Baron Vang MD PCP - General 01/09/17
--- OUTSIDE RECORDS SUMMARY | 2025-08-03 14:37 | XMS_ITS | Encounter Summary ---
Author Organization [facility] Address [facility]ly [facility] [place] [address] Care Team Providers Care Manufacturing Operator Name Role Phone Kem Fernandez MD Primary Care Provider [phone] Encounter Details Date Type Department Care Team (Late st Contact Info) Description 07/05/2020 [employer] Message Enc [facility] [address] [place] [address] Payton King APNP [address] [facility] [address] [place], [place] [id number] RE: Follow Up/Update Social History Tobacco Use [...] Exposure Response Date Recorded In the last month, have you been in contact with someone who was confirmed or suspected to have Coronavirus / COVID-19? No / Unsure 06/05/2020 9:23 AM CDT documented as of this encounter Plan of Treatment Upcoming Encounters Date Type Department Care Team (Late st Contact Info) Description 08/31/2025 10:40 AM LEVEL VIAL INSPECTOR [facility] [address] [address] [place] [address] Kem Fernandez MD [address] [place] [id number] 12/13/2025 9:20 AM CDT Office Visit [address] [place] [address] Kem Fernandez MD [address] [place] [id number] documented as of this encounter Visit Diagnoses Not on filedocumented in this encounter Care Teams Manufacturing Operator Relationship Specialty Start Date End Date Kem Fernandez MD [address] [place] [id number] PCP - General INTERNAL MEDICINE 12/12/24 documented as of this encounter
--- OUTSIDE RECORDS SUMMARY | 2025-08-03 14:37 | XMS_ITS | Clinical Summary ---
Author Organization [facility] Address [address] [place] [address] Care Team Providers Care Silicator Name Role Phone Kem Fernandez MD Primary Care Provider [phone] Allergies Active Allergy Reactions Criticality Noted Date Comments Lisinopril Cough 12/12/2024 Nickel Rash Medium 02/22/2020 Medications TIRZEPATIDE SC 10 units per syringe per pt. Active valACYclovir (VALTREX) 500 MG tabletIndications :Cold sore Take 2 tablets (1,000 mg total) by mouth 2 (two) times daily. 30 tablet 5 Active ALPRAZolam (XANAX) 0.25 MG tabletIndications :Anxiety Take 1 tablet (0.25 mg total) by mouth nightly as needed for Sleep or Anxiety. 10 tablet 5 Active sertraline (ZOLOFT) 50 MG tabletIndications :Anxiety Take 1 tablet (50 mg total) by mouth daily. 90 tablet 1 5 Active losartan (COZAAR) 50 MG tabletIndications :Primary hypertension Take 1 tablet (50 mg total) by mouth daily. 90 tablet 1 5 Active Active Problems Problem Noted Date Diagnosed Date Essential hypertension 06/05/2020 Anxiety 06/05/2020 Lumbar radiculopathy 03/27/2020 Neuralgia 02/22/2020 External hemorrhoids 08/30/2019 Immunizations Immunization Administration Dates Next Due Fluarix 11/24/2019(Deferred: Parent refu sed) Flucelvax 6 Months+ (Prefill ed Syringe) 07/22/2020,10/03/2017 Fluzone 6 Months+ Quad (0.5 mL Prefilled Syringe) 06/30/2023 Influenza (Generic) 06/22/2018, 6,07/20/2014,2012 Influenza Adult (Generic) 08/28/2022 MMR 04/06/2018 Tdap (Adacel) 10/26/2017 Tdap (Boostrix) 02/16/2018,11/05/2013 Family History Medical History Relation Comments Arthritis Father Diabetes Father Hypertension Father Diabetes Mother Colon Cancer Paternal Grandfather Relation Status Comments Father Alive Mother Alive Paternal Grandfather Social History Tobacco Use Types Packs/Day Years Used Date Smoking Tobacco: Former Cigarettes 1 15 0 1988 - 2003 Passive Smoke Exposure: Past Smokeless Tobacco: Never Tobacco Cessation:Counseling Given: Yes Comments:Counseled by Dr. Fernandez. Alcohol Use Standard Drinks/Week Comments Yes 1.7 (1 standard drink = 0.6 oz p ure alcohol) occ AUDIT-C Answer Date Recorded Frequency of Alcohol Consumption Never 08/19/2019 Average Number of Drinks Not on file 019 Frequency of Binge Drinking Not on file 07/23 PHQ-2 Answer Date Recorded Patient Health Questionnaire-2 Score 0 01/13/2025 Comments No Sex and Gender Information Value Date Recorded Sex Assigned at Female 12/12/2024 11:31 AM CDT Legal Sex Female 6:42 PM CDT Gender Identity Female 12/12/2024 11:31 AM CDT Sexual Orientation Straight 12/12/2024 11 :31 AM CDT Last Filed Vital Signs Vital Sign Reading Time Taken Comments Blood Pressure 127/76 01/13/2025 1:16 PM CDT Pulse 64 01/13/2025 1:08 PM CDT Temperature 36.6 C (97.9 F) 01/13/2025 1:08 PM CDT Respiratory Rate 18 01/13/2025 1:08 PM CDT Oxygen Saturation 99% 01/13/2025 1:08 PM CDT Inhaled Oxygen Concentration - - Weight 78.5 kg (173 lb) 01/13/2025 1:08 PM CDT Height 170.2 cm (5' 7) 01/13/2025 1:08 PM CDT Body Mass Index 27.1 01/13/2025 1:08 PM CDT Plan of Treatment Upcoming Encounters Date Type Department Care Team (Late st Contact Info) Description 08/31/2025 10:40 AM SENIOR DATABASE ADMINISTRATOR Office Visit [facility] Medical [facility] [place] [address] [address] [place] [address] Kem Fernandez MD [address] [address] 12/13/2025 9:20 AM CDT Office Visit [facility] [place] [address] [facility] [address] [place] [address] Kem Fernandez MD [address] [address] Health Maintenance Due Date Last Done Comments Colorectal Cancer Screening Colonoscopy (10 Years) 1973 Hepatitis B Vaccines (1 of 3 - 19+ 3-dose series) 1992 Cervical Cancer Screening Pap with HPV Testing (Age 30 to 64) Every 5 Years 2003 Cervical Cancer Screening Pap Smear (Age 30 to 64) Every 3 Years 11/23/2022 11/24/2019 Cervical Cancer Screening with HPV 11/23/2022 Pneumococcal Vaccine: 50+ Years (1 of 1 - PCV) 2023 Zoster Vaccines (1 of 2) 2023 COVID-19 Vaccine (3 - season) 2025 12/14/2020, 11/23/2020 Mammogram Screening 06/15/2025 06/15/2023 Influenza Adult (#1) 2025 06/30/2023, 08/28/2022, 07/22/2020, Additional history exists Annual Physical 12/12/2025 12/12/2024, 11/24/2019 DTaP, Tdap and Td Vaccines (4 - Td or Tdap) 02/17/2028 02/16/2018, 10/26/2017, 11/05/2013 Hepatitis C Completed 12/14/2024 PHQ-2 (Physician [place]) Completed 01/13/2025 Hepatitis A Vaccines Aged Out No long er eligible based on patient's age to complete this topic Meningococcal B Vaccine Aged Out No l onger eligible based on patient's age to complete this topic Meningococcal Vaccine Aged Out No kayy angelo eligible based on patient's age to complete this topic RSV Immunizations Under 20 Months Aged Out No longer eligible based on patient's age to complete this topic Procedures Procedure Name Priority Date/Time Associated Diagnosis Comments HEPATITIS C ANTIBODY Routine 12/14/2024 10:30 AM CDT Annual physical exam Establishing care with new doctor, encounter for General medical exam Drug therapy MAMMOGRAM GENERIC (SCAN ORDER) 06/15/2023 OUTSIDE CYTOPATH CERV/VAG INTERPRET (PAP) (SCAN ORDER) Routine 11/24/2019 from Last 3 Months or Most Recently Relevant to Health Maintenance Results * HEPATITIS C ANTIBODY ([facility] ONLY) (12/14/2024 10:30 AM CDT) HEPATITIS C AB NON-REACTI VE NON-REACT MAN[place] 12/14/2024 6:22 PM CDT [facility] Comment: ANTIBODIES TO HCV NOT DETECTED. DOES NOT EXCLUDE THE POSSIBILITY OF EXPOSURE TO HCV. 12/14/2024 10:3 0 AM CDT Kem Fernandez MD LABORATORY Final Result [facility] [address] [place] [address], [id number] * MAMMOGRAM GENERIC (06/15/2023) Anatomical Region Laterality Modality Other 06/15/2023 [facility] Scanned SCANNING Final Resu lt * PAP SMEAR (11/24/2019) 11/24/2019 us Documents Scanned SCANNING Edited Result - Final [facility] ONBASE from Last 3 Months or Most Recently Relevant to Health Maintenance Insurance [facility] Care Teams Silicator Relationship Specialty Start Date End Date Kem Fernandez MD [address] [facility] [address] [place] [id number] PCP - General INTERNAL MEDICINE 12/12/24
--- OUTSIDE RECORDS SUMMARY | 2025-08-03 14:37 | XMS_ITS | Encounter Summary ---
Author Organization [facility] Address [facility]ly [facility] [place] [address] Care Team Providers Care Otolaryngology Surgeon Name Role Phone Kem Fernandez MD Primary Care Provider [phone] Encounter Details Date Type Department Care Team (Late st Contact Info) Description 11/28/2019 Beam. Message Enc [facility] Family & Internal Medicine [address] [phone] [place] Provider PAP Social History Tobacco Use Types Packs/Day Years Used Date Smoking Tobacco: Never Smokeless Tobacco: Never Alcohol Use Standard Drinks/Week Comments No 0 (1 standard drink = 0.6 oz pur e alcohol) AUDIT-C Answer Date Recorded Frequency of Alcohol [...] (Late Contact Info) Description 08/31/2025 10:40 AM HAZARD MITIGATION OFFICER Office Visit [facility] [place] [address] [address] [place] [address] Kem Fernandez MD [address] [address] 12/13/2025 9:20 AM CDT Office Visit [facility] [place] [address] [address] [place] [address] Kem Fernandez MD [facility] [address] [address] documented as of this encounter Visit Diagnoses Not on filedocumented in this encounter Care Teams Otolaryngology Surgeon Relationship Specialty Start Date End Date Kem Fernandez MD [address] [place] [id number] PCP - General INTERNAL MEDICINE 12/12/24 documented as of this encounter
--- OUTSIDE RECORDS SUMMARY | 2025-08-03 14:37 | XMS_ITS | Continuity of Care Document ---
Author Organization [facility] Address [address] [place] [address] Care Team Providers Care Clinical Education Coordinator Name Role Phone TIERRA STUBBS Primary Care Provider Assessment Encounter Date Assessment Date Assessment LastModified by Organization Details LastModified Time 07/17/2025 07/17/2025 Annual gynecological exam performed. Patient will come back in a year unless there are new symptoms. [email or web address] Not available 07/17/2025 11:04:13 Plan of Treatment Reminders Order Date Submit Date Provider Last Modified By Organization Details Last Modified Time Details Appointments None recorded. Lab pap, IG + HR HPV - HPV regardless but if HPV is positive need subtyping 16,18/45 2024 [facility] (Lab), [address], [place], [address], 12:53:40 Referral None recorded. Procedures None recorded. Surgeries None recorded. Imaging MAMMO, screening, digital, bilateral [facility] [address] , [place], [address], 04:03:58 Medication Orders None recorded. 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 Elect quinton [...] as clini lor hill nted. Not Available [facility] (Lab) [address], [place], [address], 07/21/2025 12:53:40 Result Notes None recorded. Problems Name Problem SNOMED Code Status Onset Date Resolution Date Notes Provider Name and Address Organization Details Recorded Time Atypical squamous cells of undetermi guerrero significa nce on cervical Papanicol aou smear 654578053 Active 2011 Papanicol aou smear of cervix with atypical squamous cells of undetermi guerrero significa nce (ASC-US); Recorded Elsewhere : No Locati on: [facility] So urce: EHR Chron ic: N Practic e ID: 0001 Bill able Time: 10:15:00 AM Not Available [facility] 0 16:29:51 Hirsutism 898000430 Active 2012 Hirsutism ;Recorded Elsewhere : No Locati on: [facility] So urce: EHR Chron ic: N Practic e ID: 0001 Bill able Time: 04:15:00 PM Not Available [facility] 0 16:29:54 Female infertili ty associate d with anovulati on 008333575 Active 2012 Infertili ty, female, associate d with anovulati on;Record ed Elsewhere : No Locati on: [facility] So urce: EHR Chron ic: N Practic e ID: 0001 Bill able Time: 04:15:00 PM Not Available [facility] 0 16:29:58 Primigrav shair 375335935 Active 2012 Supervisi on of normal first ;Recorded Elsewhere : No Locati on: [facility] So urce: EHR Chron ic: N Practic e ID: 0001 Bill able Time: 03:45:00 PM Not Available [facility] 0 16:29:50 Amenorrhe a 64409601 Active 2012 Absence of menstruat ion;Recor ded Elsewhere : No Locati on: [facility] So urce: EHR Chron ic: N Practic e ID: 0001 Bill able Time: 03:45:00 PM Not Available [facility] 0 16:29:52 Urinary tract infectiou s disease 97217342 Active 2012 Urinary Tract Infection ;Recorded Elsewhere : No Locati on: [facility] So urce: EHR Chron ic: N Practic e ID: 0001 Bill able Time: 08:30:00 AM Not Available [facility] 0 16:29:50 Multigrav shari of advanced maternal age 292335348 Active 2012 Other advanced maternal age, antepartu m condition or complicat ion;Recor ded Elsewhere : No Locati on: [facility] So urce: EHR Chron ic: N Practic e ID: 0001 Bill able Time: 09:00:00 AM Not Available [facility] 0 16:29:53 Benign essential hypertens ion complicat ing , childbirt h and the puerperiu m - not delivered 445515032 Active 2013 Hypertens ion During ;Practice ID: 0001 Not Available [facility] 0 16:30:06 Delivery normal 41410303 Active 2013 Normal delivery; Practice ID: 0001 Not Available [facility] 0 16:30:09 Benign essential hypertens ion 2586985 Active 2013 Hypertens ion, Benign;Re corded Elsewhere : No Locati on: [facility] So urce: EHR Chron ic: Y Practic e ID: 0001 Bill able Time: 10:45:00 AM Not Available [facility] 0 16:29:55 Postpartu m care Active 2013 Post Followup; Recorded Elsewhere : No Locati on: [facility] So urce: EHR Chron ic: N Practic e ID: 0001 Bill able Time: 09:30:00 AM Not Available [facility] 0 16:29:58 Infection of the breast AND/OR nipple associate d with childbirt h 12222344 Active 2013 Unspecifi ed postpartu m infection of the breast and nipple;Pr actice ID: 0001 Not Available [facility] 0 16:30:09 Alopecia 33288963 Active 2013 Hair loss disorder; Recorded Elsewhere : No Locati on: [facility] So urce: EHR Chron ic: N Practic e ID: 0001 Bill able Time: 08:45:00 AM Not Available [facility] 0 16:29:59 Specializ ed medical examinati on Active 2014 Gynecolog ical Examinati on;Record ed Elsewhere : No Locati on: [facility] So urce: EHR Chron ic: N Practic e ID: 0001 Bill able Time: 08:30:00 AM Not Available [facility] 0 16:29:51 Adult health examinati on Active 2014 ROUTINE MEDICAL EXAM;Job rded Elsewhere : No Locati on: [facility] So urce: EHR Chron ic: N Practic e ID: 0001 Bill able Time: 08:30:00 AM Not Available [facility] 0 16:29:52 Screening for malignant neoplasm of cervix Active 2014 Pap Smear;Pra ctice ID: 0001 Not Available [facility] 0 16:30:10 Finding of fertility Active 2015 Female infertili ty, unspecifi ed;Record ed Elsewhere : No Locati on: [facility] So urce: EHR Chron ic: N Practic e ID: 0001 Bill able Time: 08:30:00 AM Not Available [facility] 0 16:29:[address] Concept Active 2015 Encntr for general adult medical exam w/o abnormal findings; Recorded Elsewhere : No Locati on: [facility] So urce: EHR Chron ic: N Practic e ID: 0001 Bill able Time: 08:30:00 AM Not Available [facility] 0 16:29:53 Body mass index 25-29 - overweigh t 217385309 Active 2015 Body mass index (BMI) 25.0-25.9 , adult;Rec orded Elsewhere : No Locati on: [facility] So urce: EHR Chron ic: N Practic e ID: 0001 Bill able Time: 08:30:00 AM Not Available [facility] 0 16:29:55 Threatene d miscarria ge 18115786 Active 2015 Threatene d ; Recorded Elsewhere : No Locati on: [facility] So urce: EHR Chron ic: N Practic e ID: 0001 Bill able Time: 02:15:00 PM Not Available [facility] 0 16:29:51 Gestation less than 9 weeks 943894918 Active 2015 Less than 8 weeks gestation of ;Practice ID: 0001 Not Available [facility] 0 16:30:11 Evaluatio n finding Active 2016 Hematuria , unspecifi ed;Record ed Elsewhere : No Locati on: [facility] So urce: EHR Chron ic: N Practic e ID: 0001 Bill able Time: 11:45:00 AM Not Available [facility] 0 16:29:[address] Concept Active 2016 Encntr for ob/gyn exam (general) (routine) w/o abn findings; Recorded Elsewhere : No Locati on: [facility] So urce: EHR Chron ic: N Practic e ID: 0001 Bill able Time: 10:00:00 AM Not Available [facility] 0 16:29:50 Hypertens laurel disorder 86382302 Active 2016 Essential (primary) hypertens ion;Recor ded Elsewhere : No Locati on: [facility] So urce: EHR Chron ic: N Practic e ID: 0001 Bill able Time: 10:00:00 AM Not Available [facility] 0 16:29:50 detection examinati on Active 2016 Encounter for test, result positive; Recorded Elsewhere : No Locati on: [facility] So urce: EHR Chron ic: N Practic e ID: 0001 Bill able Time: 10:00:00 AM Not Available [facility] 0 16:29:55 Gestation period, 12 weeks 51956985 Active 2017 12 weeks gestation of ;Recorded Elsewhere : No Locati on: [facility] So urce: EHR Chron ic: N Practic e ID: 0001 Bill able Time: 10:00:00 AM Not Available [facility] 0 16:29:51 Rubella screening status 180580133 Active 2017 Encounter for screening , unspecifi ed;Record ed Elsewhere : No Locati on: [facility] So urce: EHR Chron ic: N Practic e ID: 0001 Bill able Time: 10:45:00 AM Not Available [facility] 0 16:29:53 care: multiparo us, older than 35 years 835413139 Active 2017 Supervisi on of elderly multigrav shari, first trimester ;Recorded Elsewhere : No Locati on: [facility] So urce: EHR Chron ic: N Practic e ID: 0001 Bill able Time: 10:00:00 AM Not Available [facility] 0 16:29:54 screening Active 2017 Encounter for screening for nuchal transluce ncy;Recor ded Elsewhere : No Locati on: [facility] So urce: EHR Chron ic: N Practic e ID: 0001 Bill able Time: 10:00:00 AM Not Available [facility] 0 16:29:56 screening for malformat ion Active 2017 Encounter for screening for malformat ions;Prac myra ID: 0001 Not Available [facility] 0 16:30:05 Spotting per vagina in 898749407 Active 2017 Spotting complicat ing , second trimester ;Recorded Elsewhere : No Locati on: [facility] So urce: EHR Chron ic: N Practic e ID: 0001 Bill able Time: 01:45:00 PM Not Available [facility] 0 16:29:54 Gestation period, 27 weeks 36799554 Active 2017 27 weeks gestation of ;Recorded Elsewhere : No Locati on: [facility] So urce: EHR Chron ic: N Practic e ID: 0001 Bill able Time: 01:45:00 PM Not Available [facility] 0 16:29:55 Finding of contents of cervix 491968896 Active 2017 Weeks of gestation of not specified ;Practice ID: 0001 Not Available [facility] 0 16:30:12 False labor before 37 completed weeks of gestation 23849449911 487953 Active 2017 False labor before 37 completed weeks of gest, third tri;Pract ice ID: 0001 Not Available [facility] 0 16:30:12 Gestation period, 31 weeks 75822266 Active 2017 31 weeks gestation of ;Practice ID: 0001 Not Available [facility] 0 16:30:12 Gestation period, 32 weeks 2462990 Active 2017 32 weeks gestation of ;Recorded Elsewhere : No Locati on: [facility] So urce: EHR Chron ic: N Practic e ID: 0001 Bill able Time: 05:00:00 PM Not Available [facility] 0 16:29:50 Hypertens ion in the obstetric context Active 2017 Pre-exist ing essential htn comp , third trimester ;Recorded Elsewhere : No Locati on: [facility] So urce: EHR Chron ic: N Practic e ID: 0001 Bill able Time: 05:00:00 PM Not Available [facility] 0 16:29:[address] Concept Active 2017 Matern care for abnlt fetl hrt rate or rhym, 3rd tri, unsp;Job rded Elsewhere : No Locati on: [facility] So urce: EHR Chron ic: N Practic e ID: 0001 Bill able Time: 05:45:00 PM Not Available [facility] 0 16:29:52 Gestation period, 33 weeks 46453831 Active 2017 33 weeks gestation of ;Recorded Elsewhere : No Locati on: [facility] So urce: EHR Chron ic: N Practic e ID: 0001 Bill able Time: 05:45:00 PM Not Available [facility] 0 16:29:55 Gestation period, 34 weeks 19516860 Active 2017 34 weeks gestation of ;Recorded Elsewhere : No Locati on: [facility] So urce: EHR Chron ic: N Practic e ID: 0001 Bill able Time: 05:00:00 PM Not Available [facility] 0 16:29:53 Gestation period, 35 weeks 23716563 Active 2017 35 weeks gestation of ;Recorded Elsewhere : No Locati on: [facility] So urce: EHR Chron ic: N Practic e ID: 0001 Bill able Time: 05:30:00 PM Not Available [facility] 0 16:29:51 Normal in multigrav shari 27698630844 4106 Active 2017 Encounter for suprvsn of normal , third trimester ;Recorded Elsewhere : No Locati on: [facility] So urce: EHR Chron ic: N Practic e ID: 0001 Bill able Time: 04:30:00 PM Not Available [facility] 0 16:29:50 Gestation period, 36 weeks 01044560 Active 2017 36 weeks gestation of ;Recorded Elsewhere : No Locati on: [facility] So urce: EHR Chron ic: N Practic e ID: 0001 Bill able Time: 04:00:00 PM Not Available [facility] 0 16:29:56 Gestation period, 37 weeks 91692380 Active 2017 37 weeks gestation of ;Recorded Elsewhere : No Locati on: [facility] So urce: EHR Chron ic: N Practic e ID: 0001 Bill able Time: 05:00:00 PM Not Available [facility] 0 16:29:52 Gestation period, 38 weeks 24015145 Active 2017 38 weeks gestation of ;Recorded Elsewhere : No Locati on: [facility] So urce: EHR Chron ic: N Practic e ID: 0001 Bill able Time: 05:00:00 PM Not Available [facility] 0 16:29:53 Laceratio n of female perineum Active 2017 Second degree perineal laceratio n during delivery; Practice ID: 0001 Not Available [facility] 0 16:30:02 Single live from weaver 235399698 Active 2017 Single live ;Pra ctice ID: 0001 Not Available [facility] 0 16:30:02 Non-prote inuric hypertens ion of 562411881 Active 2017 Gestation al hypertens ion w/o significa nt proteinur ia, complicat ing the postpartu m period;Re corded Elsewhere : No Locati on: [facility] So urce: EHR Chron ic: N Practic e ID: 0001 Bill able Time: 11:45:00 AM Not Available [facility] 0 16:29:55 Lochia finding Active 2017 Encounter for routine postpartu m follow-up ;Recorded Elsewhere : No Locati on: [facility] So urce: EHR Chron ic: N Practic e ID: 0001 Bill able Time: 05:00:00 PM Not Available [facility] 0 16:29:58 Screening for malignant neoplasm of [...] device;Re corded Elsewhere : No Locati on: [facility] So urce: EHR Chron ic: N Practic e ID: 0001 Bill able Time: 09:45:00 AM Not Available [facility] 0 16:30:25 Removal of intrauter ine device Active 2018 Encounter for removal of intrauter ine contracep tive device;Pr actice ID: 0001 Not Available [facility] 0 16:29:50 test negative 325964022 Active 2018 Encounter for test, result negative; Practice ID: 0001 Not Available [facility] 0 16:29:50 Contracep tive sheath status 564515057 Active 2018 Encounter for routine checking of intrauter ine contracep dev;Pract ice ID: 0001 Not Available [facility] 0 16:29:50 Pelvic and perineal pain 449722741 Active 2018 Pelvic and perineal pain;Prac myra ID: 0001 Not Available [facility] 0 16:29:50 Problem Notes None recorded. Medical Equipment None Reported. Allergies Allergen ID Allergen Name Allergen Category Reaction Reaction Severity Criticality Documentation Date Start Date Code Code System Note Provider Name and Address Organization Details Recorded Time 22118 Product containin g penicilli n (product) medicatio n Not available Not available Not available 09/07/2020 45702 8001 SNOMED Comme nt: Locat [facility]: [facility]; Not Available [facility] 0 14:24:38 Medications Name Sig Start Date Stop Date Status Note LastModified by Organization Details LastModified Time losartan 50 mg tablet active Not Available Not Available Not Available Mirena 21 mcg/24 hr (up to 8 years) 52 mg intrauter ine device 01/12 completed Prescrib ed Elsewher e: Yes Loca tion: Mayi ayala [facility] odify By: ronen turcios DateTime : 12/09/19 19 11:15:00 AM Not Available Not Available Not Available clomiphen e citrate 50 mg tablet take 1 Tablet by oral route every day for 5 days days 5-9 of cycle 02/07 completed Prescrib ed Elsewher e: No Locat ion: Mayi ayala [facility] odify By: stacy turcios DateTime : 02/04/20 17 09:23:22 AM Not Available Not Available Not Available metoprolo l succinate ER 100 mg tablet,ex tended release 24 hr take 1 tablet by oral route every day 07/17 completed Prescrib ed Elsewher e: Yes Loca tion: Mayi ayala [facility] odify By: amelijah Ayala ncounter DateTime [...] Elsewher e: No Locat ion: Mayi ayala [facility] odify By: amelijah Ayala ncounter DateTime : 02/19/20 18 04:30:00 PM Not Available Not Available Not Available valacyclo vir 500 mg tablet active Not Available Not Available No t Available Macrobid 100 mg capsule take 1 capsule (100MG) by oral route every 12 hours with food 12/30 completed Prescrib ed Elsewher e: No Locat ion: Mayi ay[facility] odify By: constanza Ayala ncounter DateTime : 07/01/20 13 02:38:14 PM Not Available Not Available Not Available alprazola m 0.25 mg tablet active Not Available Not Available Not Available Diflucan 100 mg tablet take 1 tablet by oral route every day 05/11 completed Prescrib ed Elsewher e: No Locat ion: Mayi ayala [facility] odify By: mera Samuel r DateTime : 01/21/20 14 09:30:00 AM Not Available Not Available Not Available Femara 2.5 mg tablet take 1 tablet by oral route every day days 5-9 06/30 completed Prescrib ed Elsewher e: No Locat ion: Mayi ayala [facility] odify By: uriel Ayala ncounter DateTime : 03/09/20 17 08:30:00 AM Not Available Not Available Not Available cephalexi n 500 mg tablet take 1 tablet by oral route every 6 hours 05/11 completed Prescrib ed Elsewher e: No Locat ion: Mayi ayala [facility] odify By: mera Samuel r DateTime : 01/21/20 14 09:30:00 AM Not Available Not Available Not Available mupirocin 2 % topical ointment apply by topical route 3 times every day a small amount to the affected area for 10 days 07/12 completed Prescrib ed Elsewher e: No Locat ion: Mayi ayala [facility] odify By: keanu cummingsunter DateTime : 11/13/19 18 08:37:10 AM Not Available Not Available Not Available Vitamin D2 1,250 mcg (50,000 unit) capsule take 1 capsule (18127EF ITS) by oral route every week 12/30 completed Prescrib ed Elsewher e: No Locat ion: Mayi ay[facility] odify By: constanza cummingsuntdar DateTime : 07/01/20 13 02:38:14 PM Not Available Not Available Not Available sertralin e 50 mg tablet 07/17 completed Not Available Not Available Not Available ParaGard T 380A 380 square mm intrauter ine device 2018 active Prescrib ed Elsewher e: Yes Loca tion: Mayi ayala [facility] odify By: ronen cummingsunter DateTime : 01/13/20 19 01:00:00 PM Not Available Not Available Not Available Flexeril 10 mg tablet take 1 tablet (10MG) by oral route 2 times every day 01/20 completed Prescrib ed Elsewher e: No Locat ion: Mayi ay[facility] odify By: constanza cummingsuntdar DateTime : 11/23/19 14 10:30:00 AM Not Available Not Available Not Available iron 18 mg tablet active Prescrib ed Elsewher e: Yes Loca tion: Mayi ayala [facility] odify By: keanu cummingsunter DateTime : 12/09/19 19 11:15:00 AM Not Available Not Available Not Available Quasense 0.15 mg-30 mcg (91) tablets,3 month dose pack take 1 tablet by oral route every day 11/08 completed Prescrib ed Elsewher e: No Locat ion: Mayi ay[facility] odify By: jjkline Encounte r DateTime : 11/17/19 12 01:00:00 PM Not Available Not Available Not Available hydrochlo rothiazid e 12.5 mg tablet take 1 tablet by oral route every day 05/18 completed Prescrib ed Elsewher e: Yes Loca tion: Mayi ayala [facility] odify By: pillo Redd unter DateTime : 11/08/19 13 04:15:00 PM Not Available Not Available Not Available magnesium 100 mg (as glycinate ) tablet active Not Available Not Available Not Available Yuri-C DHA 35 mg-1 mg-200 mg capsule take 1 capsule by oral route every day 09/29 completed Prescrib ed Elsewher e: Yes Loca tion: Mayi ayala [facility] odify By: andre gutierrez DateTime : 09/29/19 18 10:45:00 AM Not Available Not Available Not Available Probiotic 10 billion cell capsule 07/17 completed Prescrib ed Elsewher e: Yes Loca tion: Mayi ayala [facility] odify By: ronen cummingsunter DateTime : 09/29/19 18 10:45:00 AM Not Available Not Available Not Available Triveen-D uo DHA 29 mg-1 mg-400 mg oral pack take 1 by Oral route every day 07/12 completed Prescrib ed Elsewher e: No Locat ion: Mayi ayala [facility] odify By: keanu Ayala ncounter DateTime : 09/30/19 18 11:30:31 AM Not Available Not Available Not Available fenugreek seed extract 500 mg capsule use as directed 03/20 completed Prescrib ed Elsewher e: No Locat ion: Mayi ayala [facility] odify By: cmedical Encount er DateTime : 12/31/19 14 10:45:00 AM Not Available Not Available Not Available Multi Vitamin 9 mg iron/15 mL oral liquid active Prescrib ed Elsewher e: Yes Loca tion: Mayi ayala [facility] odify By: keanu Ayala ncounter DateTime : 12/09/19 19 11:15:00 AM Not Available Not Available Not Available 19 29 mg iron-1 mg chewable tablet chew 1 tablet by oral route every day 12/08 completed Prescrib ed Elsewher e: Yes Loca tion: [facility] Nory oliver By: keanu turcios DateTime : [...] Updated DateTime 07/17/2025 170.18 cm 24.5 kg/m2 22976.85 g 133/79 mm[Hg] Anita Bennettton [facility] 07/17/2025 11:11:28 Social History Question Answer Notes LastModified by Organizat ion Details LastModified Time Do You Have An Advance Directive? No [email or web address] Information n ot available 07/17/2025 Are You Blind Or Do You Have Difficulty Seeing? No Information n ot available 07/17/2025 What Is Your Level Of Caffeine Consumption? Occasional [email or web address] Information not available 07/17/2025 How Much Tobacco Do You Chew? None [email or web address] Information not available 07/17/2025 In The 14 Days Before Symptom Onset, Have You Had Close Contact With A Laboratory-confirm ed COVID-19 While That Case Was Ill? No [email or web address] Information n ot available 07/17/2025 In The 14 Days Before Symptom Onset, Have You Had Close Contact With A Person Who Is Under Investigation For COVID-19 While That Person Was Ill? No [email or web address] Information not available 07/17/2025 Have You Been To An Area Known To Be High Risk For COVID-19? No Information not available 07/17/2025 Are You Deaf Or Do You Have Serious Difficulty Hearing? No [email or web address] Information not available 07/17/2025 What Type Of Diet Are You Following? REGULAR [email or web address] Information n ot available 07/17/2025 What Is The Highest Grade Or Level Of School You Have Completed Or The Highest Degree You Have Received? [id number] Information not available 07/17/2025 Are There Any Guns Present In Your Home? No Information not available 07/17/2025 Do You Use Protection During Sex? No [email or web address] Information not available 07/17/2025 Do You Use Your Seat Belt Or Car Seat Routinely? Yes [email or web address] Information not available 07/17/2025 Are You Sexually Active? Yes [email or web address] Information not available 07/17/2025 Do You Have Smoke And Carbon Monoxide Detectors In Your Home? Yes [email or web address] Information not available 07/17/2025 How Much Tobacco Do You Smoke? No Information not available 07/17/2025 Do You Use Sunscreen Routinely? Yes [email or web address] Information not available 07/17/2025 Have You Used IV Drugs? No [email or web address] Information not available 07/17/2025 Do You Have Difficulty Walking Or Climbing Stairs? No [email or web address] Information not available 07/17/2025 Sex: Unknown Functional Status Question Answer Note LastModified by Organizat ion Details LastModified Time Do you use any illicit or recreational drugs? No [email or web address] Information not available 07/17/2025 What is your level of alcohol consumption? Occasional [email or web address] Information not available 07/17/2025 Are you currently employed? No Information not available 07/17/2025 Are you able to walk independently without assistance or assistive devices? YESWOREST [email or web address] Information not available 07/17/2025 Are you able to care for yourself independently? Yes [email or web address] Information not available 07/17/2025 What is your occupation? [employer] [email or web address] Information not available 07/17/2025 Do you have difficulty dressing, bathing, grooming, or toileting? No [email or web address] Information not available 07/17/2025 What is your exercise level? Moderate [email or web address] Information not available 07/17/2025 Mental Status Question Answer Note LastModified by Organization D etails LastModified Time Do you feel stressed (tense, restless, nervous, or anxious, or unable to sleep at night)? [id number] [email or web address] Information not available 07/17/2025 Family History Relationship Description Onset Age of this Age Resolved Age Notes LastModified by Organization Details LastModified Time Father Hypertensive disorder [email or web address] Not available 2024 11:05:19 Father Diabetes mellitus DAD'S side Not available 07/17/2025 11:16:17 Mother Malignant neoplasm of skin [email or web address] Not available 2024 11:15:56 Maternal Grandmother Malignant neoplasm of breast [id number] Not available 2024 11:16:02 Unspecified Relation Diabetes mellitus Not available 2024 11:16:17 Paternal Grandfather Hypertensive disorder [email or web address] Not available 2024 11:16:22 Paternal Grandfather Malignant neoplasm of colon [email or web address] Not available 2024 11:16:36 Medical History Condition [...] ICD10 Code Diagnosis IMO Codes Diagnosis Note [id number] MEREDITH NEAL NP [place] [address] [address] 07/17/2025 11:03:09 07/17/2025 11:37:49 Well woman health examination [id number] Z01.419 [id number] Annual gynecologi isauro exam performed. Patient will [...] to 10 years. Expires 01/12/2029. Screening mammography [id number] Z12.31 [id number] Health Concerns Section Related Observation LastModified by Organization Detai ls LastModified Time None Recorded Concern Status LastModified by Organization Details LastModified Time None Recorded Payers Encounter Date Sequence Insurance Name Policy Number Policy Harrison Covered Member ID Harrison Member ID Guarantor Name 07/17/2025 1 [facility] [id number] Christian Jacobo [id number] Jolene [email or web address] Notes Date Note Type Note Provider Name [...] New patient presents to establish care. Anita brower [facility] 07/17/2025 11:41:58 OBGyn Episode No OBEpisode recorded.
--- OUTSIDE RECORDS SUMMARY | 2025-08-03 14:37 | XMS_ITS | Encounter Summary ---
Author Organization [facility] Address Count includes the [facility] [place] [address] Care Team Providers Care Data Scientist Name Role Phone Kem Fernandez MD Primary Care Provider [phone] Encounter Details Date Type Department Care Team (Late st Contact Info) Description 03/23/2023 Macawt Message Enc [facility] Medical Group Family & Internal Medicine [facility] [id number] [place] [phone] [place] [address] [place] [address] Lab tests Social History Tobacco Use Types Packs/Day Years [...] st Contact Info) Description 08/31/2025 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 [facility] Medical [facility] Multispecialty Care - [address] [address] [address] [place] [address] Kem Fernandez MD [address] [place] [address] 12/13/2025 9:20 AM CDT Office Visit [facility] Multispecialty [facility] - [address] [address] Kem Fernandez MD [address] [place] [address] documented as of this encounter Visit Diagnoses Not on filedocumented in this encounter Care Teams Data Scientist Relationship Specialty Start Date End Date Kem Fernandez MD [address] [place] [address] PCP - General INTERNAL MEDICINE 12/12/24 documented as of this encounter
--- OUTSIDE RECORDS SUMMARY | 2025-08-03 14:37 | XMS_ITS | Encounter Summary ---
Author Organization [facility] Address [facility] [place] [address] Care Team Providers Care Metal Milling Machine Operator Name Role Phone Kem Fernandez MD Primary Care Provider [phone] Encounter Details Date Type Department Care Team (Late st Contact Info) Description 09/17/2021 GridMarketst Message Enc [facility] Medical Group Family & Internal Medicine [facility] [address] [place] [phone] [place] [address] [place] [address] Prescriptions Social History Tobacco Use Types Packs/Day Years [...] st Contact Info) Description 08/31/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 [facility] Medical [facility] Multispecialty [facility] [place] - [address] [address] [address] [place] [address] Kem Fernandez MD [address] [place] [address] 12/13/2025 9:20 AM CDT [facility] [place] [facility] [address] [address] [address] [place] [address] Kem Fernandez MD [address] [place] [address] documented as of this encounter Visit Diagnoses Not on filedocumented in this encounter Care Teams Metal Milling Machine Operator Relationship Specialty Start Date End Date Kem Fernandez MD [address] [place] [address] PCP - General INTERNAL MEDICINE 12/12/24 documented as of this encounter
--- OUTSIDE RECORDS SUMMARY | 2025-08-03 14:37 | XMS_ITS | Encounter Summary ---
Author Organization [facility] Address [address] [place] [address] Care Team Providers Care Assisted Living Coordinator Name Role Phone Kem Fernandez MD Primary Care Provider [phone] Encounter Details Date Type Department Care Team (Late st Contact Info) Description 08/22/2020 XAircraftt Message Enc [facility] Family & Internal Medicine [facility] [address] [place] [phone] [place] [address] [place] [address] RE: Medication Questions Social History Tobacco Use Types Packs/Day Years [...] st Contact Info) Description 08/31/2025 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 [facility] [place] [address] [address] [address] [place] [address] Kem Fernandez MD [facility] [address] [address] 12/13/2025 9:20 AM CDT [facility] [place] [address] [address] [address] [place] [address] Kem Fernandez MD [facility] [address] [address] documented as of this encounter Visit Diagnoses Not on filedocumented in this encounter Care Teams Assisted Living Coordinator Relationship Specialty Start Date End Date Kem Fernandez MD [address] [place] [address] PCP - General INTERNAL MEDICINE 12/12/24 documented as of this encounter
--- OUTSIDE RECORDS SUMMARY | 2025-08-03 14:37 | XMS_ITS | Encounter Summary ---
Author Organization [facility] Address [facility] [place] [address] Care Team Providers Care Screw Machine Set Up Operator Name Role Phone Kem Fernandez MD Primary Care Provider [phone] Encounter Details Date Type Department Care Team (Late st Contact Info) Description 04/10/2023 Conductort Message Enc [facility] Medical Group Family & Internal Medicine [facility] [address] [place] [phone] [place] [address] [place] [address] Medication Social History Tobacco Use [...] st Contact Info) Description 08/31/2025 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 [facility] Medical [facility] Multispecialty Care - [place] [address] [address] [place] [address] Kem Fernandez MD [address] [place] [address] 12/13/2025 9:20 AM CDT Office Visit [facility] Medical [facility] Multispecialty [facility] - [address] [address] Kem Fernandez MD [address] [place] [address] documented as of this encounter Visit Diagnoses Not on filedocumented in this encounter Care Teams Screw Machine Set Up Operator Relationship Specialty Start Date End Date Kem Fernandez MD [address] [place] [address] PCP - General INTERNAL MEDICINE 12/12/24 documented as of this encounter
== END 2025-08-03 14:12 | disposition home or self-care (01) ==
LOC: ANHFOHIMG 14:14
PROVIDERS: PCP Internal Medicine; Visit Provider Internal Medicine
DX: Z12.31 Encounter for screening mammogram for malignant neoplasm of breast (principal)
CPT/HCPCS: 77063; 77067